=== PATIENT | male | born 1975 | race Caucasian/White ===

== ENCOUNTER 2017-02-17 18:52 | Emergency (ER) | payer OTHER ==
[2017-02-17 18:57] VITALS: TEMP 37.1; Ht 182.9 cm
[2017-02-17] MEDS ORDERED: LISI-725 PO (19:28)
--- NOTE | 2017-02-17 19:32 | DIAGNOSTIC IMAGING REPORT ---
RIGHT ANKLE MIN 3 VIEWS ROUTINE CLINICAL HISTORY: R ankle injury Right trauma. Pain. COMPARISON: None. DISCUSSION: The medial and lateral malleolus appear intact. There is suggestion of heterogeneity of bone mineralization of the mid to posterior calcaneus. Clinical cortical defect involving the subtalar joint. Possibly of a poorly defined a posttraumatic fracture the calcaneus is a consideration. CT study is suggested. Ankle mortise is aligned anatomically. There is no evidence for soft tissue swelling. IMPRESSION: 1. Heterogeneous appearance to bone mineralization of the mid to posterior calcaneus.. 2. Given the history of trauma, the possibility of a poorly defined fracture is considered versus anatomic variation. 3. CT study of the right ankle including calcaneus is suggested as follow-up. The above report was generated using voice recognition software. It may contain grammatical, syntax or spelling errors. Electronically signed by: Kristian Hernandez M.D. 02/17/2017 7:30 PM Dictated Date/Time: 02/17/2017 7:28 PM
[2017-02-17] MEDS ORDERED: OXYCODONE/ACETAMINOPHEN 5-325 TAB PO STA (19:41)
--- NOTE | 2017-02-17 20:18 | DIAGNOSTIC IMAGING REPORT ---
RIGHT LOWER EXTREMITY WITHOUT CT DOSE: 159.88 mGy.cm HISTORY: Trauma. Pain. Eval R ankle for talus or calcaneous injury Right TECHNIQUE: Multiaxial CT images of the right ankle and calcaneus were performed and reformatted in the sagittal and coronal plane without the use of contrast. A dose lowering technique was utilized adhering to the principles of ALARA. COMPARISON: None. FINDINGS: Comminuted fracture of the calcaneus. Comminuted component primarily involves the mid inferior and posterior aspect of the calcaneus. It extends to the posterior calcaneal services several locations. There is moderate bony distraction at the mid calcaneus level with distraction measuring up to 7 mm. There is linear extension to the subtalar joint with evidence for 2 small loose bodies within the subtalar joint space. Large is slightly fragmented with an overall dimension of 7 2 mm. A lateral digital fragment measures 2 mm. The inferior articular services of the talus appears to be intact. The ankle mortise is aligned anatomically. Medial and lateral malleolus are intact. There is a small old avulsion from the tip of the distal fibula. The comminuted fracture of the calcaneus extends to the inferior and posterior surface of the normal bone contour at several sites. There does not appear to be a significant degree of displacement of the internal separations noted. The subtalar joint although fracture appears to be aligned anatomically. Moderate soft tissue edema is present throughout. There is no evidence for dislocation. Visualized components of the tarsal bones appear unremarkable. IMPRESSION: 1. Comminuted mildly distracted fracture of the mid to posterior calcaneus. 2. Fracture extends to the articular services of the subtalar joint of the calcaneus with at least 2 small loose bodies present within the subtalar joint space. 3. All remaining osseous structures appear to be negative for additional acute bony pathology. The talar dome is intact. 4. Generalized surrounding soft tissue edematous change. 5. The study specifically negative for dislocation. The above report was generated using voice recognition software. It may contain grammatical, syntax or spelling errors. Electronically signed by: Kristian Hernandez M.D. 02/17/2017 8:16 PM Dictated Date/Time: 02/17/2017 8:09 PM
[2017-02-17 21:06] VITALS: BP 120/77; PULSE 77; O2SAT 98
--- NOTE | 2017-02-18 21:52 | EMERGENCY ROOM VISIT NOTE ---
ED Visit Note First contact with patient: 18:57 Chief Complaint: I hurt my right ankle and foot. History of Present Illness: Mr. Landrum is a 41-year-old white male who is brought into the ED via wheelchair accompanied by nursing home guards complaining of right ankle and foot pain. Patient reports approximately 3-4 hours ago he was sitting on the top bunk of a set of bunkbeds. He jumped off the bunkbeds and when he landed he twisted his right ankle. He reports since that time he has been having pain and increasing swelling in the right ankle and foot. He describes his pain as a combination of sharp and throbbing. He rates his discomfort 7/10. His pain is nonradiating. His pain worsens with ambulation and palpation of the ankle and calcaneus. He has not identified any alleviating factors related to the pain. He reports he has not had any medication for pain prior to arrival at the hospital. He denies any associated symptoms including knee pain, lower leg pain , foot weakness/numbness/tingling. Additionally he denies any previous significant injuries or surgeries to the foot or ankle. Review of Systems: As noted above in history of present illness. Past Medical History: Hypertension, anxiety. Current Medications: Lisinopril, Remeron. Allergies to Medications: Patient denies. Social History: Patient is currently incarcerated; he admits to tobacco use. Physical Examination: Vital Signs: Date Time Temp Pulse Resp B/P (MAP) Pulse Ox O2 Delivery O2 Flow Rate FiO2 02/17/17 21:06 77 18 120/77 98 02/17/17 18:57 37.1 94 16 133/87 99 Room Air GENERAL: 41-year-old male in mild to moderate distress due to pain, nontoxic- appearing, afebrile and hemodynamically stable. NEUROLOGICAL: Awake, alert and oriented to person, place and time. Answering questions appropriately and following commands. SKIN: Warm, dry and pink. No soft tissue trauma noted. RIGHT LOWER EXTREMITY: No gross bony deformity. No shortening or malrotation. No tenderness in the hip, thigh, knee or lower leg. Moderate tenderness with swelling and ecchymosis over the medial and lateral malleoli and the surrounding ligamentous structures. Moderate tenderness over the calcaneus with questionable bony deformity but no palpable crepitus. Moderate tenderness and crepitus over the calcaneus with moderate swelling. Do not appreciate any tenderness over the other tarsals, metatarsals or toes. He refused to do range of motion exercises at the level of the ankle because of pain and swelling. Throughout the foot the skin was warm and pink and capillary refill is brisk. He was able to distinguish light sensations through all dermatomes. ED Course: Patient is assessed as noted above. Patient's medication list was reviewed. Patient was given one Percocet 5/325 tablet by mouth and ice for pain and swelling. Right Ankle X-Ray: Were read by myself and the radiologist and shows heterogeneous appearance of the bone mineralization of the mid to posterior calcaneus, poorly defined fracture versus anatomical variation and the radiologist recommended an ankle CT. Right Ankle CT: Was reviewed by myself and read by the radiologist showing a comminuted mildly distracted fracture of the mid to the posterior calcaneus; fracture extends into the articular surface of the subtalar joint of the calcaneus with at least 2 small loose foreign bodies present within the subtalar joint and generalized surrounding soft-tissue edematous changes. Patient was placed in an Ortho-Glass stirrup and posterior ankle splint and instructed on nonweight bearing crutch use. Patient was educated about today's findings and instructed on his treatment plan ; he verbalizes understanding and agreement with this plan. Clinical Impression: Closed right comminuted calcaneus fracture. Disposition: Patient discharged home to nursing home in stable condition accompanied by 2 nursing home guards and subjectively reported he was feeling slightly better but continued to rate his discomfort 7/10. Plan: Comfort measures were discussed with the guards and recommended 2 nursing home personnel including the use of Felda for pain every 6 hours, ice 5-6 times a day for 20-30 minutes, splint and crutch use. Was encouraged that the patient have orthopedic follow-up. It was encouraged that the prisoner return to the ED for worsening/uncontrolled pain, uncontrolled swelling, complaints of numbness/tingling of the foot or toes.
== END 2017-02-17 21:07 | disposition home or self-care (01) ==
LOC: C.EDB 18:54 → C.EDD 21:07
DX: S92.001A Unspecified fracture of right calcaneus, initial encounter for closed fracture (principal); X58.XXXA Exposure to other specified factors, initial encounter; I10 Essential (primary) hypertension; F41.9 Anxiety disorder, unspecified; F17.200 Nicotine dependence, unspecified, uncomplicated; Z79.899 Other long term (current) drug therapy